=== PATIENT | male | born 1990 | race Caucasian/White ===

== ENCOUNTER 2018-11-18 20:05 | Emergency (ER) | payer SELFPAY ==
[~2018-11-18] VITALS: Ht 177.8 cm; Wt 75.0 kg
[2018-11-18 20:15] VITALS: BP 146/82
--- NOTE | 2018-11-18 20:23 | NUR ---
PT COOPERATIVE WITH CARE, VERBALIZES UNDERSTANDING OF POC. PT PROVIDED WARM BLANKET AND CALL LIGHT.
--- NOTE | 2018-11-18 20:25 | NUR ---
PT OOB, WALKED WITH STEADY GAIT AROUND DEPARTMENT LOOKING FOR BR. PT DIRECTED TO BR, DR HERZOG INFORMED OF PT'S ABILITY TO AMBULATE.
== END 2018-11-18 20:48 | disposition home or self-care (01) ==
LOC: ED 20:42
DX: F10.120 Alcohol abuse with intoxication, uncomplicated (principal); Y90.9 Presence of alcohol in blood, level not specified
CPT/HCPCS: 99283